=== PATIENT | male | born 1965 | race Caucasian/White ===

== ENCOUNTER 2017-04-07 08:52 | Day surgery (SDC) | END 2017-04-07 15:05 | disposition home or self-care (01) ==

== ENCOUNTER 2018-05-21 08:16 | Day surgery (SDC) | payer OTHER ==
[2018-05-18 18:25] VITALS: Ht 170.2 cm; Wt 85.0 kg
[~2018-05-21] VITALS: Ht 170.2 cm; Wt 85.0 kg
[2018-05-21] VITALS (15 sets, daily range): BP systolic 119–151; BP diastolic 77–89; PULSE 40–56; RESP 15–21
[~2018-05-21 08:16] MED LIST: CEFAZOLIN 2 GM/50 ML (PMX) 50 ML IVPB ONE; NO MEDS; PROPOFOL 200 MG INJ ONE; SEVOFLURANE 15 MIN ONE; SOD CHLORIDE 0.9% 1,000 ML IV SCH
[2018-05-21] MEDS ORDERED: BUPIVACAINE 0.25% (MPF) 30 ML INJ ONE (11:38)
[2018-05-21] MEDS ORDERED: POLYMYXIN/BACITRACIN 1L IRRIG ONE (11:38)
--- NOTE | 2018-05-21 11:38 | PREAC ---
Date/Time of Note Date/Time of Note DATE: 05/21/18 TIME: 11:37 Anesthesia Eval and Record Evaluation Time Pre-Procedure Interview DATE: 05/21/18 TIME: 11:37 Age 52 Sex male NPO: 8 hrs Preoperative diagnosis right inguinal hernia Planned procedure right inguinal hernia repair Past Medical History Past Medical History: None Surgery & Anesthesia Issues No known issue Meds Anticoagulation: No Beta Ryan within 24 hr: No Reason Beta Ryan not given: Pt. not on B-Ryan Discontinued Reported Medications [No Meds] No Conflict Check 04/07/17 Current Medications Sodium Chloride 1,000 ml @ 75 mls/hr [id number] IV ; Start 05/21/18 at 06:00; Stop 05/21/18 at 19:19 Meds reviewed: Yes Allergies Coded Allergies: No Known Allergy (Unverified , 05/21/18) Allergies Reviewed: Yes Labs/Studies Labs Reviewed: Reviewed by anesthesiologist test: N/A Pre-procedure Exam Last vitals Vital Signs Date Temp Pulse Resp B/P (MAP) Pulse Ox O2 O2 Flow FiO2 Time Delivery Rate 05/21/18 97.0 51 16 151/89 100 Room Air 10:18 (109) Airway: Adequate mouth opening, Adequate thyromental dist Mallampati: Mallampati I Teeth: Normal Lung: Normal Heart: Normal ASA Physical Status ASA physical status: 1 Emergency: None Planned Anesthetic General/MAC: LMA Planned Pain Management Parenteral pain med Pre-operative Attestations Prior to commencing anesthesia and surgery, the patient was re-evaluated, there was verification of: *The patient's identity *The results of appropriate recent lab work and preoperative vital signs *The above evaluation not changing prior to induction *Anesthetic plan, risk benefits, alternative and complications discussed with patient/family; questions answered; patient/family understands, accepts and wishes to proceed. REBECCA VERAS May 21, 2018 11:38
[2018-05-21] MEDS ORDERED: ROCURONIUM 50 MG INJ ONE (11:46)
[2018-05-21] MEDS ORDERED: PROPOFOL 20 ML ONE (11:46)
[2018-05-21] MEDS ORDERED: CEFAZOLIN 1 GM INJ ONE (11:50)
[2018-05-21] MEDS ORDERED: DEXAMETHASONE 4 MG/ML 5 ML INJ ONE (11:59)
[2018-05-21] MEDS ORDERED: ONDANSETRON 4 MG INJ ONE (12:00)
--- NOTE | 2018-05-21 12:29 | OPR ---
Date/Time of Note Date/Time of Note DATE: 05/21/18 TIME: 12:26 Operative Report Procedure Date: May 21, 2018 Preoperative Diagnosis incarcerated right inguinal hernia Postoperative Diagnosis same Operation/Procedure Performed 1. open incarcerated right inguinal hernia repair with medium ultrpro hernia plug system mesh 2. subcutaneous injection of therapeutic local anesthesia Surgeon see signature line Applied Exercise Physiologist none Anesthesia Type: general Estimated Blood Loss: 10 - 50 ml's Transfusion none Specimen none Grafts/Implants none Complications none Pt Condition Post Procedure: stable Indications This is a 52-year-old male with an incarcerated right inguinal hernia. He requires surgical repair. Risks alternatives benefits and percent were discussed with the patient. Ample time was given for questions. Patient expressed understanding and consents to the operation. Procedure Description Patient is taken to the OR and prepped and draped in usual sterile fashion. Surgical time was performed. IV antibiotics given. Right inguinal oblique incision was made with a 10 blade. Dissection with cautery was carried onto the extremity fascia. The external oblique fascia is open with a 15 blade. This incision was extended medial fairly lateral sparely with Metzenbaum scissors. Cord structures identified circumflex with a Bethesda drain and retracted out of harm's way. Indirect hernia is identified. Lysis of adhesions was performed and the indirect hernia is then manually reduced. This area is then bolstered with the disc portion of the ultra pro hernia system mesh. The disc is secured in place with a running 0 Prolene from the pubic tubercle along the shelving is unlimited. Superiorly the disc is secured to the internal bleed with interrupted 3-0 Vicryl. Onlay mesh is secured in a similar fashion with a running 0 Prolene from the pubic tubercle along the shelving is unlimited. Superiorly the onlay mesh is secured to enter oblique with interrupted 3-0 Vicryl. Straps are created and reapproximated around the cord structures to recreate the inguinal ring with interrupted 0 Prolene. The externally fascia was closed with running 3-0 Vicryl. Rusty's fascia was closed with interrupted 3-0 Vicryl. Skin is closed using a inAxilica observable skin stapler. Therapeutic subcutaneous local anesthesia was injected at the incision site. Dry dressings were applied. Diandra REESE May 21, 2018 12:29
[2018-05-21] MEDS ORDERED: HYDROCODONE/APAP (5/325) TAB PO ONE (12:30)
[2018-05-21] MEDS ORDERED: NEOSTIGMINE 10 MG INJ ONE (12:31)
[2018-05-21] MEDS ORDERED: GLYCOPYRROLATE 0.4 MG INJ ONE (12:31)
--- NOTE | 2018-05-21 12:44 | PAC ---
Date/Time of Note Date/Time of Note DATE: 05/21/18 TIME: 12:44 Post-Anesthesia Notes Post-Anesthesia Note Last documented vital signs Vital Signs Date Temp Pulse Resp B/P (MAP) Pulse Ox O2 O2 Flow FiO2 Time Delivery Rate 05/21/18 97.0 51 16 151/89 100 Room Air 1244 (109) Activity: WNL Respiratory function: WNL Cardiovascular function: WNL Mental status: Baseline Pain reasonably controlled: Yes Hydration appropriate: Yes Nausea/Vomiting absent: Yes REBECCA VERAS May 21, 2018 12:44
[2018-05-21] MEDS ORDERED: FENTAnyl 50 MCG/ML VIAL IV PRN ×3 (13:00)
[2018-05-21] MEDS ORDERED: ONDANSETRON 4 MG INJ IV PRN (13:00)
[2018-05-21] MEDS ORDERED: METOCLOPRAMIDE 10 MG INJ IV PRN (13:00)
[2018-05-21] MEDS ORDERED: EPHEDrine SULFATE 50 MG/5 ML SYG IV PRN (13:00)
[2018-05-21] MEDS ORDERED: HYDROmorphONE 1 MG/5 ML IV SYRINGE IV PRN ×3 (13:00)
[2018-05-21] MEDS ORDERED: hydrALAzine 20 MG INJ IV PRN (13:00)
[2018-05-21] MEDS ORDERED: DIPHENHYDRAMINE 50 MG INJ IV PRN (13:00)
[2018-05-21] MEDS ORDERED: LABETALOL HCL 20MG INJ IV PRN (13:00)
[2018-05-21] MEDS ORDERED: OXYCODONE/ACETAMINOPHEN (5/325) TAB PO PRN ×2 (13:00)
[2018-05-21] MEDS ORDERED: KETOROLAC 30 MG INJ IV PRN (13:00)
[2018-05-21] MEDS ORDERED: MEPERIDINE 25 MG INJ IV PRN (13:00)
[2018-05-21] MEDS ORDERED: ALBUTEROL 0.083% (NEB) 2.5 MG/3 ML AMP HHN PRN (13:00)
== END 2018-05-21 15:13 | disposition home or self-care (01) ==
LOC: SDS 08:16
PROVIDERS: ATTEND Surgery
DX: K40.30 Unilateral inguinal hernia, with obstruction, without gangrene, not specified as recurrent (principal)
CPT/HCPCS: 49507; C1781; J0690; J1100; J1170; J2405; J2710; J3010; Z7512; Z7610